=== PATIENT | female | born 1985 | race Caucasian/White ===

== ENCOUNTER 2017-03-05 18:17 | Inpatient (IN) | payer OTHER ==
[~2017-03-05] VITALS: Ht 172.7 cm; Wt 56.0 kg
[2017-03-06 01:01] LABS: CALCIUM 8.9 mg/dL (8.5-10.1); CARBON DIOXIDE 27.4 mmol/L (21-32); CHLORIDE SERUM 102 mmol/L (98-107); CREATININE SERUM 0.6 mg/dL (0.6-1.0); GFR1 > 60 mL/min; GLUCOSE SERUM 90 mg/dL (74-106); POTASSIUM SERUM 3.7 mmol/L (3.5-5.1); SODIUM SERUM 140 mmol/L (136-145)
[2017-03-06 01:05] LABS: ALBUMIN 3.9 g/dL (3.4-5.0); ALKALINE PHOSPHATASE 65 U/L (46-116); ALT/SGPT 22 U/L (14-59); AMYLASE 31 U/L (25-115); AST/SGOT 23 U/L (15-37); BILIRUBIN TOTAL 0.91 mg/dL (0.20-1.00); LIPASE 115 IU/L (73-393); PLATELET COUNT 229 x10^3mcL (130-400); TOTAL PROTEIN, SERUM 7.2 g/dL (6.4-8.2)
[2017-03-06 01:07] LABS: BASOPHIL % 0 % (0-2); RED CELL DISTRIBUTION WIDTH 14.9 % (11.5-14.5)
[2017-03-06] MEDS ORDERED: [UNRECOGNIZED DRUG - REMARK] (02:05)
[2017-03-06 03:18] LABS: T3 TOTAL 0.8 ng/mL
[2017-03-06 04:08] LABS: CHOLESTEROL/HDL RATIO 2.1
[2017-03-06 04:09] LABS: FREE T4 0.96 ng/dL (0.76-1.46); FREE THYROXINE INDEX 3.1 ug/dL (1.4-4.5); T4(THYROXINE) 7.5 ug/dL (4.7-13.3)
[2017-03-06 05:03] VITALS: BP 107/53
[2017-03-06 06:30] LABS: CALCIUM 8.5 mg/dL (8.5-10.1); CARBON DIOXIDE 26.6 mmol/L (21-32); CHLORIDE SERUM 106 mmol/L (98-107); CREATININE SERUM 0.7 mg/dL (0.6-1.0); GFR1 > 60 mL/min; GLUCOSE SERUM 88 mg/dL (74-106); MAGNESIUM 1.8 mg/dL (1.8-2.4); PHOSPHOROUS 3.5 mg/dL (2.5-4.9); POTASSIUM SERUM 3.6 mmol/L (3.5-5.1); SODIUM SERUM 141 mmol/L (136-145)
[2017-03-06 06:55] LABS: BASOPHIL % 0.5 % (0-2); PLATELET COUNT 186 x10^3mcL (130-400)
[2017-03-06 06:57] LABS: RED CELL DISTRIBUTION WIDTH 14.6 % (11.5-14.5)
[2017-03-06 08:00] LABS: UA SPECIFIC GRAVITY 1.025 (1.005-1.035); microscopic required? YES; urine erythrocyte 1+ (NEGATIVE)
[2017-03-06 08:06] LABS: AMPHETAMINE QUAL UR NONE DETECTED (NEG <=1000)
[2017-03-06 09:19] VITALS: BP 109/65
[2017-03-06 11:30] VITALS: BP 122/72
[2017-03-06 13:16] VITALS: BP 119/75
[2017-03-06 17:13] VITALS: BP 127/64
[2017-03-06 21:34] VITALS: BP 137/90
[2017-03-07 06:02] VITALS: BP 129/74
[2017-03-07 07:40] LABS: BASOPHIL % 0.5 % (0-2); PLATELET COUNT 168 x10^3mcL (130-400)
[2017-03-07 07:44] LABS: RED CELL DISTRIBUTION WIDTH 14.6 % (11.5-14.5)
[2017-03-07 10:37] VITALS: BP 108/55
[2017-03-07 13:42] VITALS: BP 110/65
[2017-03-07 18:49] VITALS: BP 123/62
[2017-03-07 22:33] VITALS: BP 123/81
[2017-03-08 00:01] VITALS: Ht 172.7 cm; Wt 56.0 kg
[2017-03-08 06:09] VITALS: BP 114/75
[2017-03-08] MEDS ORDERED: COLACE100 MG PO (13:38)
[2017-03-08] MEDS ORDERED: NORCO1 TA2 PO (13:38)
[2017-03-08 14:03] VITALS: BP 114/75
== END 2017-03-08 15:00 | disposition home or self-care (01) | DRG 710 ==
LOC: ED 18:17 → DU 03-06 02:00 → MU 03-06 15:36
PROVIDERS: Emergency Medicine; Surgery; ADMIT Family Medicine
PROC: 0DTJ4ZZ Resection of Appendix, Percutaneous Endoscopic Approach (ICD-10-PCS; principal; 2017-03-06 09:00)
DX: A41.9 Sepsis, unspecified organism (principal); N17.0 Acute kidney failure with tubular necrosis; K35.80 Unspecified acute appendicitis; N20.0 Calculus of kidney; F12.10 Cannabis abuse, uncomplicated; Z68.1 Body mass index [BMI] 19.9 or less, adult; F17.290 Nicotine dependence, other tobacco product, uncomplicated; R65.20 Severe sepsis without septic shock
CPT/HCPCS: 80307; 83880; 84439; 94150; J0696; J1170; J2250; J2270; J2405; J3010; J3490; J7030; Q0092